=== PATIENT | female | born 1985 | race Caucasian/White ===

== ENCOUNTER 2019-02-26 16:53 | Outpatient (CLI) | payer OTHER ==
[~2019-02-26] VITALS: Ht 165.1 cm; Wt 71.3 kg
[2019-02-26] MEDS ORDERED: PNV11TAB PO (17:21)
[2019-02-26 17:22] VITALS: BP 112/66; PULSE 104; RESP 18; Ht 165.1 cm; Wt 71.3 kg
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
[2019-02-26] MEDS ORDERED: ACET325T33 PO (21:45)
== END 2019-02-26 20:50 | disposition home or self-care (01) ==
LOC: L-D 16:53 → OBT 16:53
PROVIDERS: ATTEND Obstetrics & Gynecology Gynecology
DX: O9A.212 Injury, poisoning and certain other consequences of external causes complicating pregnancy, second trimester (principal); M54.5 Low back pain; V49.9XXA Car occupant (driver) (passenger) injured in unspecified traffic accident, initial encounter; Y92.410 Unspecified street and highway as the place of occurrence of the external cause; Z3A.25 25 weeks gestation of pregnancy
CPT/HCPCS: 76815; 76817; 85460; 86900; 86901; G0463

== ENCOUNTER 2019-02-26 20:59 | Emergency (ER) | payer OTHER ==
[~2019-02-26] VITALS: Ht 165.1 cm; Wt 71.1 kg
[~2019-02-26 20:59] MED LIST: PNV11TAB PO
[2019-02-26 21:04] VITALS: BP 103/60; PULSE 118; RESP 20; Ht 165.1 cm; Wt 71.1 kg
[2019-02-26] MEDS ORDERED: ACET325T33 PO (21:45)
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
== END 2019-02-26 22:05 | disposition home or self-care (01) ==
LOC: FTE 20:59
DX: O99.89 Other specified diseases and conditions complicating pregnancy, childbirth and the puerperium (principal); M54.5 Low back pain; Z3A.25 25 weeks gestation of pregnancy
CPT/HCPCS: 99282